=== PATIENT | female | born 1950 | race Caucasian/White ===

== ENCOUNTER 2017-08-19 08:00 | Outpatient (CLI) | payer MEDICARE, MEDICAID ==
[2017-08-19 18:44] LABS: BILIRUBIN,URINE NEGATIVE (NEGATIVE)
[2017-08-19 18:46] LABS: CALCIUM 9.5 mg/dL (8.5-10.3); CREATININE 0.9 mg/dL (0.4-1.0); POTASSIUM 3.9 mmol/L (3.5-5.0)
[2017-08-19 19:25] LABS: WBC,URINE 0-3 /HPF (0-5)
== END 2017-08-19 08:01 | disposition home or self-care (01) ==
LOC: LAB.S 08:00
PROVIDERS: ATTEND Nurse Practitioner Family
DX: R94.4 Abnormal results of kidney function studies (principal)
CPT/HCPCS: 36415; 80048; 81001; 82043; 87086

== ENCOUNTER 2017-09-20 11:57 | Outpatient (CLI) | payer MEDICARE, MEDICAID ==
--- NOTE | 2017-09-25 11:32 | Ultrasound Report ---
EXAMINATION: RENAL ULTRASOUND: 09/20/2017 CLINICAL INDICATION: Abnormal renal function. TECHNIQUE: Real-time scanning was performed with title insurance sales representative static images obtained. FINDINGS: The right kidney measures 11.6 x 4.8 x 3.4 cm, and the left kidney measures 10.3 x 5.1 x 4.9 cm. Both kidneys demonstrate normal cortical echotexture. No hydronephrosis, focal renal lesion, or perinephric collection is present. Prevoid, the bladder measures 8.5 x 8.0 x 6.2 cm, yielding a prevoid volume of 222 mL Bilateral ureteral jets are present. No significant postvoid residual is seen. No focal bladder wall lesion is appreciated. IMPRESSION: NORMAL RENAL ULTRASOUND. TD: 09/20/2017 13:51 MTDD
== END 2017-09-20 11:58 | disposition home or self-care (01) ==
LOC: DI 11:57
PROVIDERS: ATTEND Nurse Practitioner Family
DX: R94.4 Abnormal results of kidney function studies (principal)
CPT/HCPCS: 76770

== ENCOUNTER 2018-03-31 12:49 | Outpatient (CLI) | END 2018-03-31 12:50 | disposition home or self-care (01) ==

== ENCOUNTER 2018-04-15 08:00 | Outpatient (CLI) | payer MEDICARE, MEDICAID | END 2018-04-15 08:01 | disposition home or self-care (01) | LOC: LAB.R 08:00 | PROVIDERS: ATTEND Family Medicine | DX: R10.9 Unspecified abdominal pain (principal) | CPT/HCPCS: 82270 ==

== ENCOUNTER 2018-10-13 10:14 | Outpatient (CLI) | payer MEDICARE, MEDICAID ==
--- NOTE | 2018-10-13 12:01 | XRAY Report ---
Reason: BL FOOT PAIN > 1ST RAYS Procedure Date: 10/13/2018 Accession Number: [id number] / [id number] Procedure: XR - Foot 3 View BILAT CPT Code: FULL RESULT: EXAMS: BILATERAL FOOT, 3 VIEWS EACH EXAM DATE: 10/13/2018 11:11 AM. CLINICAL HISTORY: Bilateral foot pain and numbness in a 68-year-old female. COMPARISON: None. TECHNIQUE: Frontal, lateral and oblique views each foot. FINDINGS: Right: Bones: Small plantar and Achilles heel spurs. Osseous structures otherwise normal. No fractures or bone lesions. Joints: Minor osteoarthritic changes in the IP joints of the second through fifth digits. No subluxation or joint effusion. Soft Tissues: Normal. No soft tissue swelling. Left: Bones: Small plantar and Achilles heel spurs. Osseous structures otherwise normal. No fractures or bone lesions. Joints: Minor osteoarthritic changes in the IP joints of the second through fifth digits. No subluxation or joint effusion. Soft Tissues: Normal. No soft tissue swelling. IMPRESSION: Minor osteoarthritic changes in the IP joints of the second through fifth digits bilaterally, age appropriate. Small plantar and Achilles heel spurs bilaterally. Otherwise normal feet and visualized ankles bilaterally. RADIA
== END 2018-10-13 10:15 | disposition home or self-care (01) ==
LOC: DI 10:14
PROVIDERS: ATTEND Podiatrist
DX: M19.072 Primary osteoarthritis, left ankle and foot (principal); M19.071 Primary osteoarthritis, right ankle and foot

== ENCOUNTER 2023-03-21 08:45 | Outpatient (CLI) | payer MEDICAID, MEDICARE | END 2023-03-21 23:59 | disposition EMS.NT | LOC: EMS 08:45 | DX: R10.31 Right lower quadrant pain (principal) ==

== ENCOUNTER 2023-03-22 13:32 | Emergency (ER) | payer MEDICARE ==
[2023-03-22 14:11] LABS: BASOPHILS % (AUTO) 0.4 %; EOSINOPHILS # (AUTO) 0.2 10^3/uL (0.0-0.7); EOSINOPHILS % (AUTO) 1.7 %; HCT - HEMATOCRIT 34.1 % (37.0-47.0); HGB - HEMOGLOBIN 11.6 g/dL (12.0-16.0); LYMPHOCYTES # (AUTO) 2.1 10^3/uL (1.5-3.5); LYMPHOCYTES % (AUTO) 18.9 %; MEAN CORPUSCULAR HEMOGLOBIN 30.4 pg (27.0-31.0); MEAN CORPUSCULAR VOLUME 89.3 fL (81.0-99.0); MEAN PLATELET VOLUME 9.9 fL (7.9-10.8); MONOCYTES # (AUTO) 1.4 10^3/uL (0.0-1.0); MONOCYTES % (AUTO) 12.5 %; NEUTROPHILS # (AUTO) 7.3 10^3/uL (1.5-6.6); NEUTROPHILS % (AUTO) 65.2 %; PLT - PLATELET COUNT 307 10^3/uL (130-450); RED BLOOD COUNT 3.82 10^6/uL (4.20-5.40); RED CELL DISTRIBUTION WIDTH 12.6 % (12.0-15.0); WHITE BLOOD COUNT 11.2 x10^3/uL (4.8-10.8)
[2023-03-22 14:19] LABS: SLIDE REVIEW? Indicated
[2023-03-22 14:23] LABS: ALBUMIN 3.3 g/dL (3.2-5.5); ALBUMIN/GLOBULIN RATIO 0.8 (1.0-2.2); BILIRUBIN,TOTAL 0.9 mg/dL (0.2-1.0); CREATININE 1.1 mg/dL (0.4-1.0); POTASSIUM 3.4 mmol/L (3.5-5.0); TOTAL PROTEIN 7.5 g/dL (6.7-8.2)
[2023-03-22 14:31] LABS: GLUCOSE, URINE (UA) NEGATIVE (NEGATIVE); KETONES,URINE (UA) TRACE mg/dL (NEGATIVE); LEUKOCYTE ESTERASE, URINE NEGATIVE (NEGATIVE); NITRITE,URINE NEGATIVE (NEGATIVE); OCCULT BLOOD,URINE MODERATE (NEGATIVE); PROTEIN,URINE 30 mg/dL (NEGATIVE); UROBILINOGEN,URINE 0.2 (NORMAL) E.U./dL (NORMAL)
[2023-03-22 14:38] LABS: BILIRUBIN,URINE NEGATIVE (NEGATIVE); CLARITY,URINE CLEAR (CLEAR); ICTOTEST,URINE NEGATIVE
[2023-03-22 14:47] LABS: BACTERIA,URINE Few /HPF (None Seen); SQUAMOUS EPITHELIAL CELL,UR FEW Squamous (<= Few); WBC,URINE 0-3 /HPF (0-5)
[2023-03-22 14:56] LABS: RBC MORPHOLOGY (MULTIPLE) 1+ HYPOCHROMASIA (NORMAL)
[2023-03-22 14:57] LABS: DIFFERENTIAL COMMENT MANUAL=AUTO DIFF; PLATELET ESTIMATE, MANUAL NORMAL (130-450,000) (NORMAL); PLATELET MORPHOLOGY NORMAL APPEARANCE (NORMAL); WBC MORPHOLOGY (MULTIPLE) 1+ DOHLE BODIES (NORMAL)
[2023-03-22] MEDS ORDERED: SODIUM CHLORIDE 0.9% 1,000 ML IV STA (16:46)
[2023-03-22] MEDS ORDERED: fentaNYL 100 MCG/2 ML VIAL IVP STA (16:54)
[2023-03-22] MEDS ORDERED: ONDANSETRON 4 MG/2 ML VIAL IVP STA (16:57)
[2023-03-22] MEDS ORDERED: iohexoL-300 100 ML VIAL ONE (16:59)
--- NOTE | 2023-03-22 17:48 | ED Physician Documentation ---
PD HPI ABD PAIN - Stated complaint Stated Complaint: ABD PX - Chief complaint Chief Complaint: Abd Pain - Additional information Additional information: Patient 72-year-old female presenting with 1 week right lower quadrant abdominal pain. Reports chills and decreased appetite associated with her pain. Denies any diarrhea, constipation and has been passing flatus. Denies previous abdominal surgeries. Reports was seen by primary care and referred to the emergency department for evaluation for possible ruptured appendicitis. Review of Systems Constitutional: reports: Chills GI: reports: Abdominal Pain PD PAST MEDICAL HISTORY - Allergies Allergies/Adverse Reactions: Allergies Allergy/AdvReac Type Severity Reaction Status Date / Time Penicillins Allergy Rash Verified 03/22/23 13:53 Sulfa (Sulfonamide Allergy Rash Verified 03/22/23 13:53 Antibiotics) PD ED PE NORMAL - General General: Alert and oriented X 3, No acute distress - HEENT HEENT: Atraumatic - Neck Neck: Supple, no meningeal sign - Cardiac Cardiac: RRR - Respiratory Respiratory: No respiratory distress - Abdomen Abdomen: Other (Right lower quadrant tenderness with guarding.) - Female Female : Deferred - Rectal Rectal: Deferred - Back Back: No CVA TTP - Derm Derm: Normal color - Extremities Extremities: No deformity Results - Vitals Vitals: Oxygen O2 Source Room air - Labs Labs: Laboratory Tests 03/22/23 03/22/23 03/22/23 13:54 14:06 14:06 WBC 11.2 H RBC 3.82 L Hgb 11.6 L Hct 34.1 L MCV 89.3 MCH 30.4 MCHC 34.0 RDW 12.6 Plt Count 307 MPV 9.9 Neut # (Auto) 7.3 H Lymph # (Auto) 2.1 [place] # (Auto) 1.4 H Eos # (Auto) 0.2 Baso # (Auto) 0.0 Absolute Nucleated RBC 0.00 Band Neuts % (Manual) Not Reportable Abnorm Lymph % (Manual) Not Reportable Nucleated RBC % 0.0 Neutrophils # (Manual) Not Reportable Lymphocytes # (Manual) Not Reportable Monocytes # (Manual) Not Reportable Eosinophils # (Manual) Not Reportable Basophils # (Manual) Not Reportable Differential Comment MANUAL=AUTO DIFF Manual Slide Review Indicated WBC Morphology 1+ DOHLE BODIES Platelet Estimate NORMAL (130-450,000) Platelet Morphology NORMAL APPEARANCE RBC Morph Micro Appear 1+ HYPOCHROMASIA Sodium 130 L Potassium 3.4 L Chloride 92 L Carbon Dioxide 27 Anion Gap 11.0 BUN 16 Creatinine 1.1 H Estimated GFR (MDRD) 49 L Glucose 124 H Calcium 9.0 Total Bilirubin 0.9 AST 18 ALT 20 Alkaline Phosphatase 107 Total Protein 7.5 Albumin 3.3 Globulin 4.2 Albumin/Globulin Ratio 0.8 L Lipase 53 H Urine Color DARK YELLOW Urine Clarity CLEAR Urine pH 6.0 Ur Specific [place] 1.020 Urine Protein 30 H Urine Glucose (UA) NEGATIVE Urine Ketones TRACE Urine Occult Blood MODERATE H Urine Nitrite NEGATIVE Urine Bilirubin NEGATIVE Urine Urobilinogen 0.2 (NORMAL) Ur Leukocyte Esterase NEGATIVE Urine RBC 6-10 H Urine WBC 0-3 Ur Squamous Epith Cells FEW Squamous Urine Bacteria Few Ur Microscopic Review INDICATED Urine Culture Comments NOT INDICATED PD Medical Decision Making - ED course Complexity details: reviewed results, considered differential, d/w patient ED course: Patient is a 72-year-old female presenting to the emergency department with 1 week history of right lower quadrant pain. No relevant past surgical history. Gastrointestinal but not limited to appendicitis, nephrolithiasis, ovarian cyst. Right lower quadrant tenderness without guarding, rebound or rigidity. Patient otherwise afebrile and hemodynamically stable on arrival to the emergency dep artment.Labs demonstrate a minimal leukocytosis along with a mild elevation in creatinine and hyponatremia with sodium 130. CT abdomen pelvis is obtained and my initial interpretation is positive for perforated appendicitis. Pending radiology review. I have started Rocephin and Flagyl. I will be signing the patient out to the oncoming physician pending surgical consultation and disposition. Please see their documentation for further detail. Departure - Departure Disposition: 02 Transfer Acute Care Hosp Clinical Impression: Perforated appendicitis Condition: Stable Discharge Date/Time: 03/22/23 22:00
[2023-03-22] MEDS ORDERED: iohexoL-300 100 ML VIAL IVP ONE (18:14)
[2023-03-22] MEDS ORDERED: cefTRIAXone 1 GM in SODIUM CHLORIDE 0.9% MINIBAG 100 ML IV STA (18:23)
[2023-03-22] MEDS ORDERED: metroNIDAZOLE 500 MG/100 ML 500 MG/100 ML BAG IV SCH (19:00)
--- NOTE | 2023-03-22 19:01 | CT Report ---
PROCEDURE: ABDOMEN/PELVIS W INDICATIONS: RLQ abd pain CONTRAST: 100ml omni 300 TECHNIQUE: After the administration of weight appropriate dose of intravenous contrast, 5 mm thick sections acqu ired from the diaphragms to the symphysis. 5 mm thick coronal and sagittal reformats were acquired. For radiation dose reduction, the following was used: automated exposure control, adjustment of mA and/or kV according to patient size. COMPARISON: None FINDINGS: Image quality: Excellent. Lung bases and heart: Bibasilar atelectasis. Small-moderate hiatal hernia. Liver: No solid mass. Gallbladder and biliary tree: No biliary ductal dilatation. Gallbladder appears unremarkable. Spleen: No splenomegaly. Pancreas: No pancreatic ductal dilation. Adrenals: No adrenal nodule. Kidneys and ureters: No hydronephrosis. No renal cystic lesion which requires follow up. No solid mas s. Bowel and peritoneum: Moderate wall thickening and extensive inflammatory changes of the cecum and as cending colon and probable inflamed/dilated appendix. Punctate calcification noted in the right lower quadrant compatible with an appendicolith. There appears to be rupture with contained free air and i ncompletely rim enhancing fluid collection in the right lower quadrant measuring approximately 6.8 x 6.4 cm in axial cross sectional dimension (image 57/series 3). This area measures approximately 6.2 c m in craniocaudal dimension. There is moderate surrounding inflammatory stranding. No free air seen i n the abdomen. Free fluid is noted in the surrounding region in pelvis. Colonic diverticulosis withou t acute diverticulitis. No evidence for bowel obstruction. Lymph nodes: No central or retroperitoneal adenopathy. Vessels: No infrarenal aortic aneurysm. PELVIS Reproductive organs: Unremarkable. Bladder: No abnormal wall thickening, accounting for underdistension. Pelvic lymph nodes: No pelvic adenopathy by size criteria. Bones: No aggressive osseous abnormality. Other: No significant ventral or inguinal hernia. IMPRESSION: 1. Acute appendicitis with associated rupture and likely contained perforation. There is an incomplet rosalie organized fluid collection in the right lower quadrant measuring 6.8 x 6.4 x 6.2 cm. An appendico lith is also noted. Secondary inflammatory changes of the surrounding cecum and proximal ascending co aspen. There are also inflammatory changes of the terminal ileum. Recommend surgical consultation. 2. Other chronic findings as above. Findings were discussed with ordering provider on 03/22/2023 at 1900hrs. Reviewed by: Dion Salinas MD on 03/22/2023 7:00 PM PDT Approved by: Dion Salinas MD on 03/22/2023 7:00 PM PDT Station ID: [id number]
[2023-03-22] MEDS ORDERED: MORPHINE 2 MG/ML CARPUJECT IVP STA (19:34)
--- NOTE | 2023-03-22 19:54 | ED Physician Documentation ---
ED Addendum - Addendum Addendum: 03/22/23 19:53 Patient was signed out to me by Dr. Teixeira. Please see his note for full evaluation. The patient was awaiting CT scan. CT scan shows a likely perforated appendicitis with a large phlegmon. No organized abscess yet. I discussed the case with Dr. Vides, general surgery on-call. She recommends transfer to a facility with IR for possible drain placement. We will start to look for facilities to potentially accept the patient. Pain is well controlled. She has received IV antibiotics. She received IV Flagyl and Rocephin. 03/22/23 21:32 The patient will be transferred to [facility] in [place]. Dr. Pinzon, graciously accepts in transfer. COBRA forms completed. PROCEDURE: ABDOMEN/PELVIS W INDICATIONS: RLQ abd pain CONTRAST: 100ml omni 300 TECHNIQUE: After the administration of weight appropriate dose of intravenous contrast, 5 mm thick sections acquired from the diaphragms to the symphysis. 5 mm thick coronal and sagittal reformats were acquired. For radiation dose reduction, the following was used: automated expo sure control, adjustment of mA and/or kV according to patient size. COMPARISON: None FINDINGS: Image quality: Excellent. Lung bases and heart: Bibasilar atelectasis. Small-moderate hiatal hernia. Liver: No solid mass. Gallbladder and biliary tree: No biliary ductal dilatation. Gallbladder appears unremarkable. Spleen: No splenomegaly. Pancreas: No pancreatic ductal dilation. Adrenals: No adrenal nodule. Kidneys and ureters: No hydronephrosis. No renal cystic lesion which requires follow up. No solid mass. Bowel and peritoneum: Moderate wall thickening and extensive inflammatory changes of the cecum and ascending colon and probable inflamed/dilated appendix. Punctate calcification noted in the right lower quadrant compatible with an appendicolith. There appears to be rupture with contained free air and incompletely rim enhancing fluid collection in the right lower quadrant measuring approximately 6.8 x 6.4 cm in axial cross sectional dimension (image 57/series 3). This area measures approximately 6.2 cm in craniocaudal dimension. There is moderate surrounding inflammatory stranding. No free air seen in the abdomen. Free fluid is noted in the surrounding region in pelvis. Colonic diverticulosis without acute diverticulitis. No evidence for bowel obstruction. Lymph nodes: No central or retroperitoneal adenopathy. Vessels: No infrarenal aortic aneurysm. PELVIS Reproductive organs: Unremarkable. Bladder: No abnormal wall thickening, accounting for underdistension. Pelvic lymph nodes: No pelvic adenopathy by size criteria. Bones: No aggressive osseous abnormality. Other: No significant ventral or inguinal hernia. IMPRESSION: 1. Acute appendicitis with associated rupture and likely contained perforation. There is an incompletely organized fluid collection in the right lower quadrant measuring 6.8 x 6.4 x 6.2 cm. An appendicolith is also noted. Secondary inflammatory changes of the surrounding cecum and proximal ascending colon. There are also inflammatory changes of the terminal ileum. Recommend surgical consultation. 2. Other chronic findings as above. Departure - Departure Disposition: 02 Transfer Acute Care Hosp Clinical Impression: Perforated appendicitis Condition: Stable
[2023-03-22 21:10] VITALS: BP 119/56
== END 2023-03-22 22:00 | disposition short-term general hospital (02) ==
LOC: ED 13:32
DX: K35.32 Acute appendicitis with perforation, localized peritonitis, and gangrene, without abscess (principal)
CPT/HCPCS: 36415; 74177; 80053; 81001; 83690; 85025; 96365; 96366; 96368; 96375; 99285; Q9967; 81003; 87086

== ENCOUNTER 2023-03-22 21:52 | Outpatient (CLI) | payer MEDICARE | END 2023-03-22 23:59 | disposition short-term general hospital (02) | LOC: EMS 21:52 | PROVIDERS: ATTEND Emergency Medicine | DX: K35.32 Acute appendicitis with perforation, localized peritonitis, and gangrene, without abscess (principal) | CPT/HCPCS: A0425; A0426 ==

== ENCOUNTER 2023-12-20 09:21 | Outpatient (CLI) | payer MEDICARE, OTHER | END 2023-12-20 23:59 | disposition critical access hospital (66) | LOC: EMS 09:21 | DX: R07.89 Other chest pain (principal); R10.32 Left lower quadrant pain; R10.814 Left lower quadrant abdominal tenderness; R45.89 Other symptoms and signs involving emotional state; R41.89 Other symptoms and signs involving cognitive functions and awareness; R11.0 Nausea; R53.83 Other fatigue; R63.0 Anorexia | CPT/HCPCS: A0425; A0429 ==

== ENCOUNTER 2023-12-20 10:15 | Emergency (ER) | payer MEDICARE, OTHER ==
[2023-12-20 11:05] LABS: BILIRUBIN,URINE NEGATIVE (NEGATIVE); GLUCOSE, URINE (UA) NEGATIVE (NEGATIVE); KETONES,URINE (UA) NEGATIVE (NEGATIVE); LEUKOCYTE ESTERASE, URINE NEGATIVE (NEGATIVE); NITRITE,URINE NEGATIVE (NEGATIVE); OCCULT BLOOD,URINE NEGATIVE (NEGATIVE); PROTEIN,URINE NEGATIVE (NEGATIVE); UROBILINOGEN,URINE 0.2 (NORMAL) E.U./dL (NORMAL)
[2023-12-20 11:06] LABS: CLARITY,URINE CLEAR (CLEAR)
[2023-12-20 11:11] LABS: BASOPHILS % (AUTO) 0.3 %; EOSINOPHILS % (AUTO) 0.5 %; HCT - HEMATOCRIT 39.6 % (37.0-47.0); HGB - HEMOGLOBIN 13.9 g/dL (12.0-16.0); LYMPHOCYTES # (AUTO) 1.7 10^3/uL (1.5-3.5); LYMPHOCYTES % (AUTO) 22.7 %; MEAN CORPUSCULAR HEMOGLOBIN 31.7 pg (27.0-31.0); MEAN CORPUSCULAR HGB CONC 35.1 g/dL (32.0-36.0); MEAN CORPUSCULAR VOLUME 90.2 fL (81.0-99.0); MEAN PLATELET VOLUME 10.2 fL (7.9-10.8); MONOCYTES # (AUTO) 0.5 10^3/uL (0.0-1.0); MONOCYTES % (AUTO) 7.2 %; NEUTROPHILS # (AUTO) 5.2 10^3/uL (1.5-6.6); PLT - PLATELET COUNT 291 10^3/uL (130-450); RED BLOOD COUNT 4.39 10^6/uL (4.20-5.40); RED CELL DISTRIBUTION WIDTH 12.7 % (12.0-15.0); WHITE BLOOD COUNT 7.5 x10^3/uL (4.8-10.8)
--- NOTE | 2023-12-20 11:12 | ED Physician Documentation ---
PD HPI ABD PAIN - Stated complaint Stated Complaint: CP/WEAKNESS - Chief complaint Chief Complaint: Cardiac - History obtained from History obtained from: Patient - History of Present Illness Timing - onset: How many weeks ago (1-2) Timing - duration: Weeks (1-2 weeks of left abd pain intermittently, with now more consistent the past 2-3 days. Pain left lower. Has had minimal stool out and it is hard when does. Having intermittent pressure left chest when feeling anxious. History of anxiety. Recently Rx Buproprion for it a month ago but not improved.) Timing - details: Gradual onset, Still present Quality: Cramping, Aching Location: LLQ Radiation: Lower back Improved by: Eating, BM Worsened by: No: Eating, Moving, Breathing Associated symptoms: Nausea, Constipation, Loss of appetite. No: Fever, Vomiting, Diarrhea, Hematochezia Similar symptoms before: Has not had sx before Recently seen: Clinic (seen for her insomnia and anxiety about a month ago, Rx buproprion and continued on her AMbien.) Review of Systems Constitutional: denies: Fever, Chills Nose: denies: Rhinorrhea / runny nose, Congestion Throat: denies: Sore throat Cardiac: reports: Chest pain / pressure (when she is feeling anxious. Not exertion related.). denies: Pedal edema Respiratory: denies: Dyspnea, Cough GI: reports: Abdominal Pain, Nausea, Constipation. denies: Vomiting, Diarrhea : denies: Dysuria Psychiatric: reports: Depressed, Anxiety, Insomnia. denies: Suicidal (she says she is upset with her abd pain and anxiety to point where she would rather be but does not want to actually hurt herself. She says it is an expression of her frustration and anxiety about it.) PD PAST MEDICAL HISTORY - Past Medical History Psych: Anxiety - Past Surgical History Past Surgical History: Yes General: Appendectomy - Present Medications Home Medications: Ambulatory Orders Medication Instructions Recorded Confirmed Docusate Sodium 100Mg Capsule 100 mg PO DAILY #20 cap 12/20/23 [Colace 100Mg Capsule] Escitalopram [Lexapro] 10 mg PO DAILY 12/20/23 12/20/23 LORazepam [Ativan] 1 mg PO BID PRN #12 tablet 12/20/23 Meloxicam [Mobic] 7.5 mg PO BID 10 Days #20 tablet 12/20/23 Ondansetron Odt [Zofran] 4 mg TL Q6H PRN #10 tablet 12/20/23 QUEtiapine [SEROquel] 25 mg PO QPM PRN #6 tablet 12/20/23 Zolpidem Tartrate [Ambien Cr] 12.5 mg PO HS PRN #6 tab 12/20/23 Zolpidem [Ambien] 10 mg PO HS 12/20/23 12/20/23 buPROPion HCL [Bupropion Xl] 150 mg PO DAILY 12/20/23 12/20/23 cephALEXin [Keflex] 500 mg PO TID #20 cap 12/20/23 metroNIDAZOLE [Flagyl] 500 mg PO BID 7 Days #14 tablet 12/20/23 traMADol [Ultram] 50 mg PO Q4-6H 12/20/23 12/20/23 - Allergies Allergies/Adverse Reactions: Allergies Allergy/AdvReac Type Severity Reaction Status Date / Time Penicillins Allergy Rash Verified 12/20/23 10:34 Sulfa (Sulfonamide Allergy Rash Verified 12/20/23 10:34 Antibiotics) - Social History Does the pt smoke?: No Smoking Status: Never smoker Does the pt drink ETOH?: No Does the pt have substance abuse?: No PD ED PE NORMAL - Vitals Vital signs reviewed: Yes - General General: Alert and oriented X 3, Well developed/nourished, Other (seems very anxious. ) - Neck Neck: Supple, no meningeal sign, No adenopathy - Cardiac Cardiac: RRR, No murmur - Respiratory Respiratory: Clear bilaterally - Abdomen Abdomen: Normal bowel sounds, Soft, Non distended, No organomegaly, Other (tender LLQ with some guarding and percussion tender. No rebound. Rest of abd not tender. ) - Female Female : Deferred - Rectal Rectal: Deferred - Back Back: No CVA TTP - Derm Derm: Normal color, Warm and dry Results - Vitals Vitals: Vital Signs - 24 hr 12/20/23 12/20/23 12/20/23 10:23 12:34 16:34 Temperature 36.5 C Heart Rate 74 73 68 Respiratory 15 11 L 14 Rate Blood Pressure 153/77 H 136/76 H 129/89 H O2 Saturation 95 96 98 Oxygen O2 Source Room air - Labs Labs: Laboratory Tests 12/20/23 12/20/23 12/20/23 10:59 10:59 10:59 WBC 7.5 RBC 4.39 Hgb 13.9 Hct 39.6 MCV 90.2 MCH 31.7 H MCHC 35.1 RDW 12.7 Plt Count 291 MPV 10.2 Neut # (Auto) 5.2 Lymph # (Auto) 1.7 [place] # (Auto) 0.5 Eos # (Auto) 0.0 Baso # (Auto) 0.0 Absolute Nucleated RBC 0.00 Nucleated RBC % 0.0 Sodium 134 L Potassium 3.7 Chloride 99 L Carbon Dioxide 25 Anion Gap 10.0 BUN 9 Creatinine 0.8 Estimated GFR (MDRD) 71 L Glucose 106 H Calcium 9.8 Magnesium 1.9 Total Bilirubin 0.5 AST 27 ALT 22 Alkaline Phosphatase 69 Troponin I High Sens 3.0 Total Protein 7.1 Albumin 4.5 Globulin 2.6 Albumin/Globulin Ratio 1.7 Lipase 42 Urine Color Urine Clarity Urine pH Ur Specific [place] Urine Protein Urine Glucose (UA) Urine Ketones Urine Occult Blood Urine Nitrite Urine Bilirubin Urine Urobilinogen Ur Leukocyte Esterase Ur Microscopic Review Urine Culture Comments Ethyl Alcohol < 10.0 12/20/23 10:59 WBC RBC Hgb Hct MCV MCH MCHC RDW Plt Count MPV Neut # (Auto) Lymph # (Auto) [place] # (Auto) Eos # (Auto) Baso # (Auto) Absolute Nucleated RBC Nucleated RBC % Sodium Potassium Chloride Carbon Dioxide Anion Gap BUN Creatinine Estimated GFR (MDRD) Glucose Calcium Magnesium Total Bilirubin AST ALT Alkaline Phosphatase Troponin I High Sens Total Protein Albumin Globulin Albumin/Globulin Ratio Lipase Urine Color LIGHT YELLOW Urine Clarity CLEAR Urine pH 7.0 Ur Specific [place] <=1.005 Urine Protein NEGATIVE Urine Glucose (UA) NEGATIVE Urine Ketones NEGATIVE Urine Occult Blood NEGATIVE Urine Nitrite NEGATIVE Urine Bilirubin NEGATIVE Urine Urobilinogen 0.2 (NORMAL) Ur Leukocyte Esterase NEGATIVE Ur Microscopic Review NOT INDICATED Urine Culture Comments NOT INDICATED Ethyl Alcohol - Rads (name of study) abd/pelvic CT Relevant Findings:: Prelim report reviewed (segment of colon descending and sigmoid with wall thickening and inflammation c/w infectious or inflammatory. No diverticula seen per se. No free fluid nor signs of perforation. ), EMP independent interpretation of test PD Medical Decision Making - ED course Complexity details: reviewed results (abd CT showing focal area of colitis sigmoid/descending area, so will treat as focal colitis. Abx and anti- inflammatories, stool softener for her constipation. Regarding her anxiety/insomnia, can try either Ambien CR 12.5 for more sustained effect (she says only 2 hours of sleep with current ambien)) ED course: or can try other med. She says traxodone tried in past and made her more awake. Could try Seroquel. I wrote xripts for few of both and talked with her to try one for few nights then other few nights and see if either works better. Short term ativan for anxiety, with having good effect when given here in ED. Social Work met with pt to discuss options for her anxiety/mood, and helped arrange a psychiatric appt for her next Saturday. Pt assessed as not really suicidal but just frustrated about her symptoms and has optimism about the scripts for sleep/anxiety and that her abd pain will resolve. See Apartment House Manager note Departure - Departure Disposition: Home, Self Care Clinical Impression: Insomnia, Anxiety, Acute colitis Condition: Stable Record reviewed to determine appropriate education?: Yes Instructions: ED Diverticulitis Follow-Up: JIMMY KENNEDY MD [Primary Care Provider] - Yarely Pina, RILEY, [employer]ER, PMHNP [Credentialed Staff Provider] - Prescriptions: Zolpidem Tartrate [Ambien Cr] 12.5 mg PO HS PRN #6 tab PRN Reason: Insomnia LORazepam [Ativan] 1 mg PO BID PRN #12 tablet PRN Reason: Anxiety Docusate Sodium 100Mg Capsule [Colace 100Mg Capsule] 100 mg PO DAILY #20 cap metroNIDAZOLE [Flagyl] 500 mg PO BID 7 Days #14 tablet cephALEXin [Keflex] 500 mg PO TID #20 cap Meloxicam [Mobic] 7.5 mg PO BID 10 Days #20 tablet QUEtiapine [SEROquel] 25 mg PO QPM PRN #6 tablet PRN Reason: Insomnia Ondansetron Odt [Zofran] 4 mg TL Q6H PRN #10 tablet PRN Reason: Nausea / Vomiting Comments: Your abdominal pain is coming from a localized area of inflammation and presumed infection in the descending colon and sigmoid colon (colitis). This often will originate at an area of local outpouching such as a diverticulum. There is no obvious signs of a localized diverticulitis and no abscess or perforation. Given the localized nature of the inflammation, we would still treat it like a infectious/inflammatory cause. Stay well-hydrated. Continue usual medicines. Add docusate stool softener and meloxicam anti-inflammatory to help with the i nflammation and constipation/pressure in the intestine. Cephalexin and metronidazole antibiotics twice daily or as directed for 5 days for the infectious component. For your anxiety in the short-term, you can use lorazepam/Ativan once or twice daily to help with the anxiety. This is what we gave you here. To help with your sleep, we can try a controlled release version of Ambien to see if it is more sustaining for your sleep through the night. Alternatively I wrote for quetiapine as a sleep medication as well. You can try 1 or the other but not both at night to try and help with sleep. Use one of the other for 2-3 nights in a row and then could try the other and see which is more effective to help with your sleep. Follow-up with the psychiatrist next Saturday as planned. Follow-up with your primary care as well regarding all your symptoms. I sent your prescriptions to your preferred pharmacy. Return as needed. Forms: PCP List Discharge Date/Time: 12/20/23 16:49
[2023-12-20] MEDS: SODIUM CHLORIDE 0.9% 1,000 ML IV STA (11:29)
[2023-12-20] MEDS: ONDANSETRON 4 MG/2 ML VIAL IVP STA (11:30)
[2023-12-20] MEDS: LORazepam 2 MG/ML VIAL IVP STA ×2 (11:33→14:22)
[2023-12-20] MEDS: KETOROLAC 15 MG/ML VIAL IVP STA (11:35)
[2023-12-20 11:38] LABS: ALBUMIN 4.5 g/dL (3.2-5.5); ALBUMIN/GLOBULIN RATIO 1.7 (1.0-2.2); ALKALINE PHOSPHATASE 69 IU/L (42-121); ALT ALANINE AMINOTRANSFERASE 22 IU/L (10-60); AST ASPARTATE AMINOTRANSFERASE 27 IU/L (10-42); BILIRUBIN,TOTAL 0.5 mg/dL (0.2-1.0); BUN - BLOOD UREA NITROGEN 9 mg/dL (6-20); CALCIUM 9.8 mg/dL (8.5-10.3); CARBON DIOXIDE - CO2 25 mmol/L (21-32); CHLORIDE 99 mmol/L (101-111); CREATININE 0.8 mg/dL (0.6-1.3); ETOH - ETHANOL < 10.0 mg/dL; GFR - MDRD 71 (>89); GLUCOSE 106 mg/dL (74-104); LIPASE 42 U/L (11-82); MAGNESIUM 1.9 mg/dL (1.7-2.3); POTASSIUM 3.7 mmol/L (3.5-4.5); SODIUM 134 mmol/L (135-145); TOTAL PROTEIN 7.1 g/dL (6.4-8.9)
[2023-12-20] MEDS: HYDROmorphone 0.5 MG/0.5 ML SYRINGE IVP STA (11:38)
[2023-12-20] MEDS ORDERED: iohexoL-300 100 ML VIAL ONE (12:24)
[2023-12-20] MEDS: iohexoL-300 100 ML VIAL IVP ONE (12:48)
--- NOTE | 2023-12-20 13:03 | CT Report ---
PROCEDURE: Abdomen/Pelvis W INDICATIONS: left abd pain few days, increasing CONTRAST: 100ml omni 300 TECHNIQUE: After the administration of intravenous contrast, a CT scan of the abdomen and pelvis was performed. Images were recorded and evaluated at appropriate window settings. Reformats: coronal and sagittal. F or radiation dose reduction, the following was used: automated exposure control, adjustment of mA and /or kV according to patient size. COMPARISON: 03/22/2023. FINDINGS: Image quality: Diagnostic. Lower chest: Mild bibasilar dependent atelectasis is seen. Heart size is normal, no pericardial effus ion.. Liver: No solid mass. Gallbladder and biliary tree: No radiopaque stones or wall thickening. No biliary dilation. Spleen: No splenomegaly. Pancreas: No pancreatic ductal dilation. Adrenals: No adrenal nodule. Kidneys and ureters: No hydronephrosis. No renal cystic lesion which requires follow up. No solid mas s. Stomach, bowel and peritoneum: Patient is status post interval appendectomy with surgical clips seen in right lower quadrant abdomen. There is suggestion of mild descending and sigmoid colon wall thicke miquel. Mild sigmoid diverticulosis is seen. No abscess collection. No significant pericolonic fat stra nding. No free fluid of free air. Lymph nodes: No central or retroperitoneal adenopathy. Vessels: No infrarenal aortic aneurysm. PELVIS Reproductive organs: Unremarkable. Bladder: No abnormal wall thickening, accounting for underdistention. Pelvic lymph nodes: No pelvic adenopathy by size criteria. Bones: No aggressive osseous abnormality. Other: No significant ventral or inguinal hernia. IMPRESSION: 1. Descending and sigmoid colon wall thickening with narrowing of the lumen suggestive of infectious or inflammatory colitis. Superimposed diverticulitis involving midportion of sigmoid colon cannot be entirely excluded. There is no signs of perforation. No abscess collection. No free fluid of free air . 2. Prior appendectomy. No bowel obstruction. No other area of abnormal bowel wall thickening. Reviewed by: Landry Hogue MD on 12/20/2023 1:01 PM PDT Approved by: Landry Hogue MD on 12/20/2023 1:01 PM PDT Station ID: [id number]
[2023-12-20] MEDS: cefTRIAXone 1 GM VIAL IVP STA (14:22)
[2023-12-20] MEDS: metroNIDAZOLE 250 MG TABLET PO STA (14:22)
[2023-12-20 16:42] VITALS: BP 129/89; O2SAT 98
== END 2023-12-20 16:49 | disposition home or self-care (01) ==
LOC: EDUNIT# → EDBD → ED 10:15
DX: K52.9 Noninfective gastroenteritis and colitis, unspecified (principal); F41.9 Anxiety disorder, unspecified; G47.00 Insomnia, unspecified; K59.00 Constipation, unspecified
CPT/HCPCS: 36415; 74177; 80053; 81003; 83690; 83735; 84484; 85025; 93005; 96374; 96375; 99284; 99285; A9270; G0480; J1170; J2060; Q9967; 81001; 82077; 87086

== ENCOUNTER 2024-02-24 12:07 | Outpatient (CLI) | payer MEDICARE, OTHER, MEDICAID ==
[2024-02-24 12:28] LABS: BASOPHILS % (AUTO) 0.4 %; EOSINOPHILS # (AUTO) 0.1 10^3/uL (0.0-0.7); EOSINOPHILS % (AUTO) 1.4 %; HCT - HEMATOCRIT 39.3 % (37.0-47.0); HGB - HEMOGLOBIN 13.2 g/dL (12.0-16.0); LYMPHOCYTES # (AUTO) 3.3 10^3/uL (1.5-3.5); LYMPHOCYTES % (AUTO) 41.8 %; MEAN CORPUSCULAR HEMOGLOBIN 31.5 pg (27.0-31.0); MEAN CORPUSCULAR HGB CONC 33.6 g/dL (32.0-36.0); MEAN CORPUSCULAR VOLUME 93.8 fL (81.0-99.0); MEAN PLATELET VOLUME 9.7 fL (7.9-10.8); MONOCYTES # (AUTO) 0.5 10^3/uL (0.0-1.0); MONOCYTES % (AUTO) 5.8 %; NEUTROPHILS % (AUTO) 50.3 %; PLT - PLATELET COUNT 301 10^3/uL (130-450); RED BLOOD COUNT 4.19 10^6/uL (4.20-5.40); RED CELL DISTRIBUTION WIDTH 13.4 % (12.0-15.0)
[2024-02-24 12:40] LABS: CREATININE,URINE 49.6 mg/dL
[2024-02-24 12:43] LABS: ALBUMIN 4.6 g/dL (3.2-5.5); ALBUMIN/GLOBULIN RATIO 1.6 (1.0-2.2); ALKALINE PHOSPHATASE 74 IU/L (42-121); ALT ALANINE AMINOTRANSFERASE 21 IU/L (10-60); AST ASPARTATE AMINOTRANSFERASE 21 IU/L (10-42); BILIRUBIN,TOTAL 0.4 mg/dL (0.2-1.0); BUN - BLOOD UREA NITROGEN 15 mg/dL (6-20); CARBON DIOXIDE - CO2 31 mmol/L (21-32); CHLORIDE 101 mmol/L (101-111); CHOL/HDL RATIO 2.9 (<4.4); CHOLESTEROL 252 mg/dL; CREATININE 0.9 mg/dL (0.6-1.3); GFR - MDRD 62 (>89); GLUCOSE 99 mg/dL (74-104); HDL CHOLESTEROL 87 mg/dL; LDL CHOLESTEROL,CALCULATED 133 mg/dL; LDL/HDL RATIO 1.5 (<4.4); MICROALBUMIN,URINE < 0.7 mg/dL; POTASSIUM 3.5 mmol/L (3.5-4.5); SODIUM 138 mmol/L (135-145); TOTAL PROTEIN 7.4 g/dL (6.4-8.9); TRIGLYCERIDES 158 mg/dL (48-352); VLDL CHOLESTEROL 32 mg/dL
[2024-02-24 13:42] LABS: ESTIMATED AVERAGE GLUCOSE 114 mg/dL (70-100); HEMOGLOBIN A1c% 5.6 % (4.27-6.07)
[2024-02-24] MEDS: GADOTERATE MEGLUMINE 7.5 MMOL/15 ML VIAL IVP ONE (13:45)
--- NOTE | 2024-02-24 16:48 | MRI Report ---
PROCEDURE: Brain W/WO INDICATIONS: COGNITIVE DEFICIT IN FRONTAL LOBE CONTRAST: 11.4ml Clariscan TECHNIQUE: Noncontrast axial T1 spin echo, axial T2 fast spin echo, sagittal and axial FLAIR, coronal T2 fast sp in echo, axial gradient echo, axial diffusion and ADC through the brain. After the administration of contrast, axial and coronal T1 spin echo with fat saturation through the brain. COMPARISON: None. FINDINGS: Image quality: Excellent. CSF spaces: Basal cisterns are patent. No extra-axial fluid collections. Ventricles are normal in size and shape. Brain: No midline shift. No intracranial bleeds or masses. No abnormal intracranial enhancement. There is cerebral volume loss for age. There is mild periventricular white matter chronic small vess el ischemic change. The brainstem appears normal. Diffusion-weighted images demonstrate no acute is chemic insults. No chronic ischemic insults. Normal intravascular flow voids are present. Skull and face: Calvarial marrow is normal in signal. Orbits appear normal. Sinuses: Sinuses and mastoids appear clear. IMPRESSION: There is age-appropriate mild diffuse global volume loss and mild chronic microvascular ischemic zamudio ges. No acute intracranial abnormalities. Reviewed by: Jose Cardoza MD on 02/24/2024 3:47 PM YURI Approved by: Jose Cardoza MD on 02/24/2024 3:47 PM YURI Station ID: [id number]
== END 2024-02-24 12:08 | disposition home or self-care (01) ==
LOC: LAB 12:07
PROVIDERS: ATTEND Nurse Practitioner
DX: R41.844 Frontal lobe and executive function deficit (principal); F33.2 Major depressive disorder, recurrent severe without psychotic features; R94.4 Abnormal results of kidney function studies; Z13.6 Encounter for screening for cardiovascular disorders; F41.1 Generalized anxiety disorder; G31.89 Other specified degenerative diseases of nervous system; I67.82 Cerebral ischemia
CPT/HCPCS: 36415; 80053; 80061; 82043; 82570; 83036; 83721; 84443; 85025

== ENCOUNTER 2024-03-20 08:19 | Outpatient (CLI) | payer MEDICARE, OTHER, MEDICAID ==
--- NOTE | 2024-03-20 12:40 | Ultrasound Report ---
PROCEDURE: Carotid Doppler Complete INDICATIONS: COGNITIVE DEFICIT TECHNIQUE: Color and pulse Doppler interrogation was performed of both carotid systems, with image documentation and velocity measurements. COMPARISON: None. FINDINGS: Right side: Brachial blood pressure: 116/72 mm Hg. Common carotid artery peak systolic velocity: 69 cm/sec. Internal carotid artery peak systolic velocity: 83 cm/sec. Internal carotid artery end diastolic velocity: 30 cm/sec. External carotid artery peak systolic velocity: 85 cm/sec. ICA/CCA peak systolic ratio: 1.19 . Rosas scale imaging description: No significant atherosclerotic plaque. Percent internal carotid artery stenosis: No hemodynamically significant stenosis. Vertebral artery: Flow direction is antegrade. Left side: Brachial blood pressure: 150/62 mm Hg. Common carotid artery peak systolic velocity: 80 cm/sec. Internal carotid artery peak systolic velocity: 75 cm/sec. Internal carotid artery end diastolic velocity: 31 cm/sec. External carotid artery peak systolic velocity: 95 cm/sec. ICA/CCA peak systolic ratio: 0.93 . Rosas scale imaging description: Mild atherosclerotic plaque. Percent internal carotid artery stenosis: Less than 50 percent stenosis. Vertebral artery: Flow direction is antegrade. IMPRESSION: 1. In the right internal carotid artery, there is no hemodynamically significant stenosis based on pe ak systolic velocity criteria. 2. In the left internal carotid artery, there is less than 50 percent stenosis based on peak systolic velocity criteria. 3. Antegrade blood flow within the right vertebral artery. 4. Antegrade blood flow within the left vertebral artery. The estimate of stenosis included in the report of the imaging study was calculated using the [facility]-end orsed standards of carotid artery stenosis. Reviewed by: Jose Cardoza MD on 03/20/2024 12:39 PM PDT Approved by: Jose Cardoza MD on 03/20/2024 12:39 PM PDT Station ID: [id number]
== END 2024-03-20 08:20 | disposition home or self-care (01) ==
LOC: DI 08:19
PROVIDERS: ATTEND Internal Medicine
DX: R41.844 Frontal lobe and executive function deficit (principal); I65.22 Occlusion and stenosis of left carotid artery; R53.83 Other fatigue; R10.9 Unspecified abdominal pain; K57.90 Diverticulosis of intestine, part unspecified, without perforation or abscess without bleeding
CPT/HCPCS: 36415; 74177; 82024; 82533; 93880; Q9963; Q9967

== ENCOUNTER 2024-03-20 08:20 | Outpatient (CLI) | payer MEDICARE, OTHER, MEDICAID ==
[2024-03-20] MEDS ORDERED: iohexoL-300 100 ML VIAL ONE (08:46)
[2024-03-20] MEDS ORDERED: DIATRIZOATE MEGLU/DIATRIZO SOD 30 ML BOTTLE PO ONE (08:46)
[2024-03-20] MEDS: DIATRIZOATE MEGLU/DIATRIZO SOD 30 ML BOTTLE PO ONE (10:19)
[2024-03-20] MEDS: iohexoL-300 100 ML VIAL IVP ONE (10:19)
--- NOTE | 2024-03-20 11:59 | CT Report ---
PROCEDURE: Abdomen/Pelvis W INDICATIONS: ABD PAIN CONTRAST: 100ml omni 300 TECHNIQUE: After the administration of intravenous contrast, a CT scan of the abdomen and pelvis was performed. Images were recorded and evaluated at appropriate window settings. Reformats: coronal and sagittal. F or radiation dose reduction, the following was used: automated exposure control, adjustment of mA and /or kV according to patient size. COMPARISON: CT abdomen pelvis 12/20/2023. FINDINGS: Image quality: Diagnostic. Lower chest: Unremarkable. Liver: No solid mass. Gallbladder: No radiopaque stones or wall thickening. Biliary tree: No intrahepatic or extrahepatic dilation, accounting for age. Spleen: No splenomegaly. Pancreas: No pancreatic ductal dilation. No peripancreatic fluid collection. Adrenals: No adrenal nodule. Kidneys and ureters: No hydronephrosis. No renal cystic lesion which requires follow up. No solid mas s. Stomach, bowel and peritoneum: No gastric or small bowel dilation. No abnormal wall thickening. No pa thologic free fluid. Diverticulosis. Absent appendix. Lymph nodes: No central or retroperitoneal adenopathy. Vessels: No infrarenal aortic aneurysm. Suspected inflow of unopacified blood at the left gonadal vei n and SMV. PELVIS Reproductive organs: Anteverted uterus. Bladder: No abnormal wall thickening, accounting for underdistention. Pelvic lymph nodes: No pelvic adenopathy by size criteria. Bones: No aggressive osseous abnormality. Other: No significant ventral or inguinal hernia. IMPRESSION: No acute abnormality identified. Diverticulosis. No diverticulitis. No free fluid. Reviewed by: Camden Carlton MD on 03/20/2024 11:58 AM PDT Approved by: Camden Carlton MD on 03/20/2024 11:58 AM PDT Station ID: [id number]
== END 2024-03-20 08:21 | disposition home or self-care (01) ==
LOC: DI 08:20
PROVIDERS: ATTEND Physician Assistant Medical
DX: R10.9 Unspecified abdominal pain (principal); K57.90 Diverticulosis of intestine, part unspecified, without perforation or abscess without bleeding
CPT/HCPCS: 36415; 82024; 82533

== ENCOUNTER 2024-03-20 08:23 | Outpatient (CLI) | payer MEDICARE, OTHER, MEDICAID | END 2024-03-20 08:24 | disposition home or self-care (01) | LOC: LAB 08:23 | PROVIDERS: ATTEND Physician Assistant Medical | DX: R53.83 Other fatigue (principal) | CPT/HCPCS: 36415; 82024; 82533 ==

== ENCOUNTER 2024-06-10 07:49 | Outpatient (CLI) | payer MEDICARE, OTHER, MEDICAID ==
[2024-06-10 15:25] LABS: BASOPHILS % (AUTO) 0.4 %; EOSINOPHILS # (AUTO) 0.1 10^3/uL (0.0-0.7); EOSINOPHILS % (AUTO) 0.8 %; HCT - HEMATOCRIT 39.5 % (37.0-47.0); HGB - HEMOGLOBIN 13.1 g/dL (12.0-16.0); LYMPHOCYTES # (AUTO) 2.1 10^3/uL (1.5-3.5); LYMPHOCYTES % (AUTO) 24.7 %; MEAN CORPUSCULAR HEMOGLOBIN 31.4 pg (27.0-31.0); MEAN CORPUSCULAR HGB CONC 33.2 g/dL (32.0-36.0); MEAN CORPUSCULAR VOLUME 94.7 fL (81.0-99.0); MEAN PLATELET VOLUME 11.1 fL (7.9-10.8); MONOCYTES # (AUTO) 0.6 10^3/uL (0.0-1.0); MONOCYTES % (AUTO) 6.7 %; NEUTROPHILS # (AUTO) 5.7 10^3/uL (1.5-6.6); PLT - PLATELET COUNT 323 10^3/uL (130-450); RED BLOOD COUNT 4.17 10^6/uL (4.20-5.40); RED CELL DISTRIBUTION WIDTH 13.2 % (12.0-15.0); WHITE BLOOD COUNT 8.5 x10^3/uL (4.8-10.8)
[2024-06-10 16:15] LABS: THYROID STIMULATING HORMONE 1.24 uIU/mL (0.34-5.60)
[2024-06-10 16:22] LABS: FERRITIN 112.2 ng/mL (11.0-306.8)
[2024-06-10 16:39] LABS: MAGNESIUM 1.9 mg/dL (1.7-2.3)
[2024-06-10 16:45] LABS: ALBUMIN 4.4 g/dL (3.2-5.5); ALBUMIN/GLOBULIN RATIO 1.9 (1.0-2.2); BILIRUBIN,TOTAL 0.5 mg/dL (0.2-1.0); CALCIUM 9.8 mg/dL (8.5-10.3); CREATININE 0.9 mg/dL (0.6-1.3); POTASSIUM 4.1 mmol/L (3.5-4.5); TOTAL PROTEIN 6.7 g/dL (6.4-8.9)
[2024-06-11 06:05] LABS: CALCIUM IONIZED SERUM 5.3 mg/dL (4.5-5.6)
[2024-06-11 19:07] LABS: ANTINUCLEAR ANTIBODIES IFA Negative (.)
[2024-06-11 23:08] LABS: T-TRANSGLUTAMINASE (TTG) IGA 2 U/mL (0-3)
== END 2024-06-10 07:50 | disposition home or self-care (01) ==
LOC: LAB.S 07:49
PROVIDERS: ATTEND Internal Medicine
DX: R10.9 Unspecified abdominal pain (principal); R63.4 Abnormal weight loss; R53.83 Other fatigue; Z78.9 Other specified health status; R41.844 Frontal lobe and executive function deficit
CPT/HCPCS: 36415; 80053; 82306; 82330; 82607; 82728; 83540; 83735; 83970; 84134; 84443; 84466; 84481; 85025; 86038; 86231; 86364